=== PATIENT | female | born 1990 | race Caucasian/White ===

== ENCOUNTER 2024-11-17 17:08 | Emergency (ER) | payer MEDICARE ==
[~2024-11-17] VITALS: Ht 147.3 cm; Wt 56.7 kg
[2024-11-17] MEDS ORDERED: METFORMIN HYDR500 MG PO (17:58)
[2024-11-17] MEDS ORDERED: MONTELUKAST SODI4 M1 PO (17:58)
[2024-11-17] MEDS ORDERED: LEVOTHYROXINE100 MC1 PO (17:58)
[2024-11-17] MEDS ORDERED: INCRUSE ELLI62.5 MCG INH (17:59)
[2024-11-17] MEDS ORDERED: VENT7GM INH (17:59)
[2024-11-17] MEDS ORDERED: Acetaminophen/Oxycodone 5 MG/325 MG TABLET PO ONE (18:10)
[2024-11-17] MEDS ORDERED: PERCOCET 5-3251 EACH PO (18:12)
== END 2024-11-17 18:16 | disposition home or self-care (01) ==
LOC: ED 17:08
DX: S92.351A Displaced fracture of fifth metatarsal bone, right foot, initial encounter for closed fracture (principal); W22.8XXA Striking against or struck by other objects, initial encounter; Y93.89 Activity, other specified; Y92.89 Other specified places as the place of occurrence of the external cause; Y99.8 Other external cause status